=== PATIENT | male | born 1970 | race Caucasian/White ===

== ENCOUNTER → 2025-02-04 | Outpatient (CLI) | payer BC ==
--- NOTE | 2025-02-04 13:10 | US ---
EXAMINATION TYPE: US scrotum with doppler. DATE OF EXAM: 02/04/2025 COMPARISON: NONE CLINICAL INDICATION: Male, 54 years old with history of N50.82 Scrotal pain; scrotal pain x 1 year TECHNIQUE: Grayscale, color Doppler and spectral Doppler imaging of the scrotum. FINDINGS: EXAM MEASUREMENTS: TESTICLES: Right Testicle: 4.8 x 3.1 x 2.1 cm Left Testicle: 4.2 x 2.8 x 1.9 cm EPIDIDYMIS HEAD: Right Epididymis: 0.9 cm, epi head cyst seen measuring 0.3 x 0.2cm Left Epididymis: 0.8 cm Doppler performed to assess for testicular vascularity; good bilateral color flow and spectral wavefo juni are seen Presence of hydroceles: small right Presence of varicoceles: vessels on left side appear dilated before valsalva IMPRESSION: Symmetric satisfactory blood flow to both testicles. No evidence for acute process. No evidence for intratesticular mass. Possible Left-sided varicocele. [facility], , 02/04/2025 1:08 PM
--- NOTE | 2025-02-04 13:11 | US ---
EXAMINATION TYPE: US groin BILAT DATE OF EXAM: 02/04/2025 COMPARISON: NONE CLINICAL INDICATION: Male, 54 years old with history of N50.82 Scrotal pain; scrotal pain TECHNIQUE: bilateral groins scanned FINDINGS: No obvious abnormality found on today's study No obvious hernia including dynamic evaluation. No obvious concerning focal mass or fluid collection. No obvious suspicious adenopathy. IMPRESSION: Unremarkable study. [facility], , 02/04/2025 1:09 PM
== END | disposition home or self-care (01) ==
LOC: RADUSWWP 12:07
PROVIDERS: ATTEND Pediatrics
DX: N50.82 Scrotal pain (principal)
CPT/HCPCS: 76870; 76882; 93975